=== PATIENT | female | born 1980 | race Caucasian/White ===

== ENCOUNTER 2024-07-25 20:11 | Emergency (ER) | payer SELFPAY ==
[2024-07-25 20:22] VITALS: RESP 20; BMI 25.4
[2024-07-25] MEDS ORDERED: methaDONE HCL 10 MG TABLET ONE (20:59)
[2024-07-25] MEDS ORDERED: METOCLOPRAMIDE HCL 10 MG TABLET (FP) PO ONE (20:59)
[2024-07-25] MEDS: METOCLOPRAMIDE HCL 10 MG TABLET (FP) PO ONE (21:02)
[2024-07-25] MEDS: methaDONE HCL 10 MG TABLET PO ONE (21:20)
[2024-07-26 00:27] LABS: BASO % 0.2 % (0-2.0); HEMATOCRIT 41.4 % (32.4-45.2); HEMOGLOBIN 13.8 GM/dL (10.7-15.3); LYMPH % 11.9 % (8-40); MCH 28.2 pg (25.7-33.7); MCHC 33.3 g/dl (32.0-36.0); MEAN CELL VOLUME 84.7 fl (80-96); MEAN PLT VOLUME 7.3 fl (7.5-11.1); MONO % 8.6 % (3.8-10.2); NEUT % 79.3 % (42.8-82.8); PLATELET COUNT 496 10^3/uL (134-434); RBC 4.88 M/mm3 (3.60-5.2); RDW 14.6 % (11.6-15.6); WHITE BLOOD COUNT 13.5 K/mm3 (4.0-10.0)
[2024-07-26] MEDS: LACTATED RINGERS SOLUTION 1000 ML INFUS.BAG IV ONE (00:32)
[2024-07-26 00:44] LABS: POTASSIUM 3.6 mmol/L (3.5-5.1)
[2024-07-26 00:46] LABS: CALCIUM 10.1 mg/dL (8.5-10.1)
[2024-07-26 00:47] LABS: ALBUMIN 4.3 g/dl (3.4-5.0); BLOOD UREA NITROGEN 19.2 mg/dL (7-18)
[2024-07-26 00:49] VITALS: BP 124/70; PULSE 112; TEMP 99.7
[2024-07-26 00:50] LABS: CREATININE 0.8 mg/dL (0.55-1.3)
[2024-07-26 00:51] LABS: BILIRUBIN,TOTAL 0.7 mg/dL (0.2-1); TOT PROT 8.8 g/dl (6.4-8.2)
[2024-07-26] MEDS ORDERED: methaDONE HCL 10 MG TABLET ONE ×2 (00:51→01:23)
[2024-07-26] MEDS: methaDONE HCL 10 MG TABLET PO ONE ×2 (00:56→01:31)
[2024-07-26] MEDS: SODIUM CHLORIDE 0.9% 500 ML INFUS.BAG IV ONE (01:19)
== END 2024-07-26 03:14 | disposition home or self-care (01) ==
LOC: JER 20:11
DX: F11.93 Opioid use, unspecified with withdrawal (principal); R11.2 Nausea with vomiting, unspecified; M79.10 Myalgia, unspecified site; R25.1 Tremor, unspecified
CPT/HCPCS: 36415; 80053; 85025; 93005; 93010; 99284-25